=== PATIENT | male | born 1980 | race Caucasian/White ===

== ENCOUNTER 2019-04-27 11:59 | Emergency (ER) | payer MEDICAID, OTHER ==
[~2019-04-27] VITALS: Ht 188 cm; Wt 147.4 kg
[2019-04-27 12:00] VITALS: BP 120/101
[2019-04-27] MEDS ORDERED: LIDOcaine 5% patch TP STA (12:30)
[2019-04-27] MEDS ORDERED: naproxen 500mg tablet PO ONE (12:30)
[2019-04-27] MEDS ORDERED: NAPR-56 PO (13:22)
[2019-04-27] MEDS ORDERED: IBUP-1986 PO (13:34)
== END 2019-04-27 14:01 | disposition home or self-care (01) ==
LOC: ER 11:59
DX: M54.5 Low back pain (principal); Z98.890 Other specified postprocedural states; Z88.2 Allergy status to sulfonamides; Z79.899 Other long term (current) drug therapy; W01.0XXA Fall on same level from slipping, tripping and stumbling without subsequent striking against object, initial encounter; Y93.89 Activity, other specified; Y92.89 Other specified places as the place of occurrence of the external cause; Y99.8 Other external cause status
CPT/HCPCS: 72100; 99284

== ENCOUNTER 2019-09-04 22:10 | Emergency (ER) | payer MEDICAID, OTHER ==
[~2019-09-04] VITALS: Ht 190.5 cm; Wt 150.0 kg
[~2019-09-04 22:10] MED LIST: IBUP-1986 PO
[2019-09-04 22:12] VITALS: BP 166/108
== END 2019-09-05 00:13 | disposition home or self-care (01) ==
LOC: ER 22:10
DX: L72.8 Other follicular cysts of the skin and subcutaneous tissue (principal); I10 Essential (primary) hypertension; Z98.890 Other specified postprocedural states; Z88.2 Allergy status to sulfonamides; Z79.899 Other long term (current) drug therapy
CPT/HCPCS: 99281

== ENCOUNTER 2021-10-22 12:05 | Emergency (ER) | payer MEDICAID ==
[~2021-10-22] VITALS: Ht 190.5 cm; Wt 147.0 kg
[2021-10-22 12:18] VITALS: BP 169/102
[2021-10-22] MEDS ORDERED: IBUP-1986 PO (15:06)
[2021-10-22] MEDS ORDERED: CYCL-1 PO (15:06)
[2021-10-22] MEDS ORDERED: cyclobenzaprine 10mg tablet PO ONE (15:10)
[2021-10-22] MEDS ORDERED: ibuprofen tablet 400 MG TABLET PO ONE (15:10)
== END 2021-10-22 15:33 | disposition home or self-care (01) ==
LOC: ER 12:05
DX: S39.012A Strain of muscle, fascia and tendon of lower back, initial encounter (principal); I10 Essential (primary) hypertension; G89.29 Other chronic pain; Z88.2 Allergy status to sulfonamides; Z79.899 Other long term (current) drug therapy; W19.XXXA Unspecified fall, initial encounter; Y93.89 Activity, other specified; Y92.89 Other specified places as the place of occurrence of the external cause; Y99.8 Other external cause status
CPT/HCPCS: 99283

== ENCOUNTER 2023-10-10 17:41 | Emergency (ER) | payer MEDICAID ==
[~2023-10-10] VITALS: Ht 190.5 cm; Wt 163.6 kg
[~2023-10-10 17:41] MED LIST changes: +CYCL-1 PO
[2023-10-10 18:33] VITALS: BP 172/100; TEMP 98.5
[2023-10-11] MEDS ORDERED: BENZ-38 PO (00:31)
[2023-10-11] MEDS ORDERED: AZIT-164 PO (00:31)
[2023-10-11 00:46] VITALS: PULSE 90; RESP 16; O2SAT 94
== END 2023-10-11 00:47 | disposition home or self-care (01) ==
LOC: ER 17:42
DX: R05.9 Cough, unspecified (principal); R06.02 Shortness of breath; I10 Essential (primary) hypertension; F17.200 Nicotine dependence, unspecified, uncomplicated; Z88.2 Allergy status to sulfonamides; Z79.2 Long term (current) use of antibiotics; Z79.899 Other long term (current) drug therapy; Z79.1 Long term (current) use of non-steroidal anti-inflammatories (NSAID)
CPT/HCPCS: 71045; 93005; 99283

== ENCOUNTER 2024-02-01 12:30 | Outpatient (CLI) | payer MEDICAID ==
[2024-02-01 13:23] LABS: ALBUMIN 3.5 G/DL (3.4-5.0); ANION GAP 8 (8-16); BLOOD UREA NITROGEN 23 MG/DL (7-18); BUN/CREATININE RATIO 16.1 (10.0-20.0); CALCIUM 8.9 MG/DL (8.5-10.1); CHLORIDE 105 MMOL/L (99-107); CREATININE 1.43 MG/DL (0.60-1.10); FREE T4 (FREE THYROXINE) 1.02 NG/DL (0.73-1.40); GLUCOSE 134 MG/DL (70-104); MAGNESIUM 1.9 MG/DL (1.5-2.4); POTASSIUM 3.7 MMOL/L (3.5-5.1); PRO BRAIN NATRIURETIC PEPTIDE 5262 PG/ML (0-125); SODIUM 144 MMOL/L (135-145); THYROID STIMULATING HORMONE 3.74 ulU/ml (0.34-4.50); TOTAL CARBON DIOXIDE 31.4 MMOL/L (24-32); eGFR 54 ML/MIN
== END 2024-02-01 23:59 | disposition home or self-care (01) ==
LOC: CARD DIAG 12:30
PROVIDERS: ATTEND Family Medicine
DX: I34.0 Nonrheumatic mitral (valve) insufficiency (principal); I50.9 Heart failure, unspecified
CPT/HCPCS: 36415; 80048; 83735; 83880; 84439; 84443; 93306